=== PATIENT | female | born 1975 | race African-American/Black ===

== ENCOUNTER 2017-07-09 12:22 | Emergency (ER) | payer SELFPAY ==
[~2017-07-09] VITALS: Ht 180.3 cm; Wt 153.8 kg
[2017-07-09 12:27] VITALS: BP 166/116; Ht 180.3 cm; Wt 153.8 kg
== END 2017-07-09 13:19 | disposition home or self-care (01) ==
LOC: ED 12:22
DX: J06.9 Acute upper respiratory infection, unspecified (principal); J44.9 Chronic obstructive pulmonary disease, unspecified; Z88.8 Allergy status to other drugs, medicaments and biological substances